=== PATIENT | male | born 1965 | race African-American/Black ===

== ENCOUNTER 2021-03-25 19:31 | Emergency (ER) | payer MEDICAID ==
[~2021-03-25] VITALS: Ht 185.4 cm; Wt 88.0 kg
[~2021-03-25 19:31] MED LIST: AMLODIPINE; LISINOPRIL
[2021-03-25 19:36] VITALS: BP 157/95
[2021-03-25] MEDS ORDERED: DIAZEPAM 5 MG TABLET PO ONE (20:15)
[2021-03-25] MEDS ORDERED: DIAZ5TAB MT (22:14)
== END 2021-03-25 22:49 | disposition home or self-care (01) ==
LOC: ER 19:31
DX: M54.42 Lumbago with sciatica, left side (principal); I10 Essential (primary) hypertension; R94.31 Abnormal electrocardiogram [ECG] [EKG]; Z94.0 Kidney transplant status
CPT/HCPCS: 93005; 93970; 99284